=== PATIENT | male | born 1955 | race Hispanic/Latino ===

== ENCOUNTER 2022-06-10 11:46 | Outpatient (CLI) | payer MEDICARE ==
[2022-06-10] MEDS ORDERED: Iopamidol 370 76% 100 ML VIAL ONE (13:39)
== END 2022-06-10 11:47 | disposition home or self-care (01) ==
LOC: CT 11:46
PROVIDERS: ATTEND Internal Medicine Cardiovascular Disease
DX: I71.4 Abdominal aortic aneurysm, without rupture (principal); K74.60 Unspecified cirrhosis of liver; K76.6 Portal hypertension; I85.10 Secondary esophageal varices without bleeding; K44.9 Diaphragmatic hernia without obstruction or gangrene; I70.0 Atherosclerosis of aorta; I70.8 Atherosclerosis of other arteries; K63.89 Other specified diseases of intestine
CPT/HCPCS: 74175; Q9967